=== PATIENT | male | born 1980 | race Caucasian/White ===

== ENCOUNTER 2020-06-28 15:25 | Emergency (ER) | payer OTHER ==
[2020-06-28 17:28] LABS: HEMOGLOBIN 15.8 gm/dl (14.0-17.5); RED BLOOD COUNT 5.48 M/UL (4.20-5.50); WHITE BLOOD COUNT 8.8 K/UL (4.5-11.0)
[2020-06-28 18:04] LABS: BUN/CREATININE RATIO 14 (0-10)
[2020-06-28] MEDS ORDERED: TESSALON PERLE100 MG PO (19:00)
[2020-06-28] MEDS ORDERED: ZITHROMAX250 MG PO (19:00)
== END 2020-06-28 19:17 | disposition home or self-care (01) ==
LOC: ER1 15:25
PROVIDERS: Emergency Medicine
DX: J06.9 Acute upper respiratory infection, unspecified (principal); Z88.5 Allergy status to narcotic agent; Z20.822 Contact with and (suspected) exposure to COVID-19
CPT/HCPCS: 71045; 80053; 82550; 82553; 82728; 83605; 83615; 84484; 85025; 85379; 85610; 85730; 86140; 87040; 87081; 87880; 93005; 99284; U0002